=== PATIENT | male | born 1975 | race Caucasian/White ===

== ENCOUNTER 2023-02-06 15:27 | Outpatient (CLI) | payer OTHER, SELFPAY ==
--- NOTE | 2023-02-06 16:01 | ECHO_ITS ---
Patient Info Name: Caesar Laguerre Age: 47 years : 1975 Gender: Male Ht: 70 in Wt: 235 lbs BSA: 2.33 m2 HR: 73 bpm BP: 136 / 78 mmHg Heart Rhythm: Sinus Rhythm Technical Quality: Good Exam Date: 02/06/2023 4:10 PM Exam Location: [facility] Patient Status: Outpatient Admit Date: 02/06/2023 Staff Ordering Physician: Jeff Guzman MD Underwear Trimmer: Vikash Bermudez RDCS Attending Provider: Jeff Guzman MD Referring Physician: Thomas COURTNEY; Exam Type: CA echo doppler color flow Study Info Indications - cardiac murmur/umspcified Complete two-dimensional, color flow and Doppler transthoracic echocardiogram is performed. Summary 1. Complete two-dimensional, color flow and Doppler transthoracic echocardiogram is performed. 2. Normal left ventricular size and thickness with good contractility of all segments. Ejection fraction 60-65%. Normal diastolic function. 3. Trace mitral and tricuspid regurgitation'. 4. Probably normal estimated pulmonary pressure, although the tricuspid regurgitant envelope was not well defined. 5. Normal sinus rhythm. Left Ventricle Left ventricular chamber dimension is normal. Left ventricular systolic function is normal, estimated at 60-65%. There is no increased left ventricular wall thickness. Left ventricular septal wall motion is normal. The left ventricular diastolic function is normal. Right Ventricle Right ventricular chamber dimension is mildly enlarged. Right ventricular systolic function is normal. Left Atria Left atrial chamber dimension is normal. Right Atria Right atrial chamber dimension is normal. Aortic Valve The aortic valve is trileaflet. There is no aortic valve sclerosis. There is no aortic valve stenosis. There is no aortic valve regurgitation. Pulmonic Valve The pulmonic valve is normal. There is no pulmonic valve stenosis. There is no pulmonic regurgitation. Mitral Valve The mitral valve has normal leaflets. There is no mitral valve stenosis. There is trace mitral valve regurgitation. Tricuspid Valve The tricuspid valve leaflets are normal. There is no significant tricuspid valve stenosis. There is trace tricuspid valve regurgitation. No pulmonary hypertension, estimated pulmonary arterial systolic pressure is 16 mmHg. Pericardium/Pleural The pericardium appears normal. There is no pericardial effusion. Inferior Vena Cava Normal inferior vena cava with >50% collapse upon inspiration consistent with Empty right atrial pressure, 10 mmHg. Aorta The aortic root size at the sinus of Valsalva is normal. The prox ascending aorta size is normal. Left Ventricular Outflow Tract Name Value Normal LVOT 2D LVOT Diameter 2.2 cm LVOT Doppler LVOT Peak Gradient 4 mmHg LVOT Mean Gradient 2 mmHg LVOT VTI 21 cm LVOT VTI/AV VTI Ratio 0.8 LVOT Stroke Volume 82 ml LVOT CO 5.1 l/min LVOT CI 2.2 l/min/m2 Pulmonic Valve
== END 2023-02-06 15:28 | disposition home or self-care (01) ==
PROVIDERS: PCP Family Medicine; Visit Provider Family Medicine
DX: R01.1 Cardiac murmur, unspecified (principal)
CPT/HCPCS: 93306

== ENCOUNTER 2023-02-13 09:00 | Outpatient (NON) | payer OTHER, SELFPAY | END 2023-02-13 09:01 | disposition home or self-care (01) | LOC: ANHLAB 02-14 07:33 | PROVIDERS: PCP Family Medicine; Visit Provider Internal Medicine Gastroenterology | DX: Z12.11 Encounter for screening for malignant neoplasm of colon (principal); K63.5 Polyp of colon | CPT/HCPCS: 88305 ==

== ENCOUNTER 2023-02-13 11:07 | Day surgery (SDC) | payer OTHER, SELFPAY ==
[2023-01-10 11:24] VITALS: BMI 36.0
[2023-01-28 10:31] VITALS: BMI 33.8
--- NOTE | 2023-02-12 12:48 | P.PNAN_ITS ---
Anes - Initial Pre Proc Eval Procedure: Operation Date: 02/13/23 12:30 Proposed Procedures p Screening Colonoscopy - Alli Ryan MD Date/Time: 02/12/23 12:48 Surgeon: Alli Ryan MD Pre Op Diagnosis: Neoplasm Screening Patient Data Age: 47 Gender: M Height: 1.78 m Weight: 107 kg Allergies Allergy/AdvReac Type Severity Reaction Status Date / Time No Known Allergies Allergy Verified 02/13/23 11:31 Home Medications Medication Instructions Recorded Confirmed Type lisinopril 5 mg tablet 5 mg PO DAILY #90 tabs 01/06/23 02/13/23 Rx sodium,potassium,mag sulfates 17.5 See Rx Instructions PO .COMPLEX 01/10/23 02/13/23 Rx gram-3.13 gram-1.6 gram oral soln #354 mL (Suprep Bowel Prep Kit) Patient hx anesthesia problems: none Family hx anesthesia problems: none Results Review: All pre-operative results and documents have been reviewed as part of the pre- operative evaluation. [facility] Past Medical History Medical History (Updated 02/12/23 @ 12:49 by Gary Soliz DO) Essential (primary) hypertension Family History Family History Father Family history of glaucoma Other Family history of malignant neoplasm of breast Hypertension No family history of cardiovascular disease Social History Social History (Updated 12/19/22 @ 15:37 by Maya Vidal MA) Smoking status: Never smoker Alcohol intake: current Alcohol use details: 2x week Substance use: never Substance use type: does not use Lack of Transportation: No Lack of Food: Never True Current Housing: I Have Housing Concerned About Future Housing: No Difficulty Paying Gas/Electric Bills: No Difficulty Paying for Meds: No Currently Unemployed: No Living arrangements: with family Spiritual care concerns: No Anes - Eval Final PreProcedure Day of Procedure 02/12/23 12:48 Patient weight: obese Heart: regular rate and rhythm Lungs: clear to auscultation Airway: Mallampati scale class II Neurological: alert and oriented Last oral intake: >/= 8 hours ASA classification: III Emergent: no Anesthetic plan: proceed Anesthesia type and monitoring: general GIVS and standard monitoring Results Review: All pre-operative results and documents have been reviewed as part of the pre- operative evaluation. Informed Consent: The patient's anesthetic plan and its attendant risks and benefits were discussed with the patient/family/POA. Questions were solicited and answers provided to the satisfaction of the patient/family/POA.
[2023-02-13 11:27] VITALS: BP 136/91; PULSE 80; RESP 18; TEMP 37.3; O2SAT 98; BMI 33.7
--- NOTE | 2023-02-13 11:44 | P.HP_ITS ---
History of Present Illness History of Present Illness Consent: Risks, benefits, and alternatives have been discussed and questions answered. Patient agrees to proceed with procedure. Chief complaint: Neoplasm Screening Narrative: Caesar Laguerre is a 47 year old male Presents for screening colonoscopy. Patient's current weight appetite and bowel movements are normal. Patient denies abdominal pain. He has had no bleeding. Family history is significant this father and uncle both have had colon polyps. patient presents today for neoplasia screening exam. Review of Systems Review of Systems: Review of systems noncontributory. [facility] Past Medical History Medical History (Updated 02/12/23 @ 12:49 by Gary Soliz DO) Essential (primary) hypertension Family History Family History Father Family history of glaucoma Other Family history of malignant neoplasm of breast Hypertension No family history of cardiovascular disease Social History Social History (Updated 12/19/22 @ 15:37 by Maya Vidal MA) Smoking status: Never smoker Alcohol intake: current Alcohol use details: 2x week Substance use: never Substance use type: does not use Lack of Transportation: No Lack of Food: Never True Current Housing: I Have Housing Concerned About Future Housing: No Difficulty Paying Gas/Electric Bills: No Difficulty Paying for Meds: No Currently Unemployed: No Living arrangements: with family Spiritual care concerns: No Meds Home Medications and Allergies Home Medications Medication Instructions Recorded Confirmed Type lisinopril 5 mg tablet 5 mg PO DAILY #90 tabs 01/06/23 02/13/23 Rx sodium,potassium,mag sulfates 17.5 See Rx Instructions PO .COMPLEX 01/10/23 02/13/23 Rx gram-3.13 gram-1.6 gram oral soln #354 mL (Suprep Bowel Prep Kit) Allergies Allergy/AdvReac Type Severity Reaction Status Date / Time No Known Allergies Allergy Verified 02/13/23 11:31 Vital Signs Vital Signs - 24 hr 02/13/23 11:27 Temperature 99.2 F Pulse Rate 80 Respiratory Rate 18 Blood Pressure 136/91 H Pulse Oximetry 98 Oxygen Delivery Room Air Exam Narrative: Physical exam reveals patient to be alert. Vital signs stable. HEENT exam is unremarkable. Patient is anicteric. Lungs are clear to auscultation and percussion. Heart is without murmur or extra sounds. Abdomen bowel sounds are present soft nontender with no organomegaly. Digital external rectal exam normal. Assessment and Plan Assessment and plan (1) Colon cancer screening: Code(s): Z12.11 - Encounter for screening for malignant neoplasm of colon Status: Acute Assessment and Plan: Patient presents today for screening colonoscopy. his father and uncle have had colon polyps. Plan for surveillance exam now. Consider this at 5 year intervals in the future.
[2023-02-13] MEDS: LACTATED RINGERS 1,000 ML 150 ML IV CONT (11:46)
[2023-02-13 12:23] VITALS: BP 123/77; PULSE 85; RESP 18; O2SAT 95
[2023-02-13 12:33] VITALS: BP 134/88; PULSE 76; RESP 16; O2SAT 99
[2023-02-13 12:43] VITALS: BP 124/84; PULSE 80; RESP 18; O2SAT 97
--- NOTE | 2023-02-13 13:39 | WPDANESPN ---
Anes - Prog Note Post-Op Date/Time: 02/13/23 13:39 Cardiovascular status: normal Respiratory status: normal Airway patency: baseline Mental status: baseline Post-Op hydration status: normal Vital Signs: Last Vital Signs Temp 37.3 C 02/13/23 11:27 Pulse 80 02/13/23 12:43 Resp 18 02/13/23 12:43 BP 124/84 02/13/23 12:43 Pulse Ox 97 02/13/23 12:43 O2 Del Method Room Air 02/13/23 12:43 Pain Score (VAS): 0 I/O: Intake & Output 02/12/23 02/13/23 02/13/23 23:59 07:59 15:59 Intake Total 350 Balance 350 Post-procedural complaints: none Patient Feedback: Patient satisfied with anesthetic care. Other Findings: Patient vital signs back to baseline. Patient denies nausea and vomiting. Patient's pain under control. Patient OK for discharge.
== END 2023-02-13 13:00 | disposition home or self-care (01) ==
PROVIDERS: PCP Family Medicine; Visit Provider Internal Medicine Gastroenterology
PROC: 0DJD8ZZ Inspection of Lower Intestinal Tract, Via Natural or Artificial Opening Endoscopic (ICD-10-PCS; CPT 45378; principal; 2023-02-13 12:30)
DX: Z12.11 Encounter for screening for malignant neoplasm of colon (principal)
CPT/HCPCS: 45385

== ENCOUNTER 2024-05-01 15:19 | Emergency (ER) | payer OTHER, SELFPAY ==
[2024-05-01 15:29] VITALS: BP 152/88; PULSE 84; RESP 18; TEMP 36.8; O2SAT 100
--- NOTE | 2024-05-01 15:30 | ED.EYEPROB ---
HPI - Eye Problem General Chief complaint: Eye Problems Stated complaint: eye swelling Time Seen by Provider: 05/01/24 15:31 Source: patient Mode of arrival: ambulatory Limitations: no limitations History of Present Illness HPI Narrative: 48-year-old male presented for complaint of right upper eyelid swelling, itching, and redness. Onset yesterday. He states the night before symptom onset he was outside doing yard work. Denies eye pain, FB sensation, vision changes, photophobia, or eye drainage. Has not taken anything for symptoms. Denies any other complaints MD chief complaint: eye pain Related Data Allergies Allergy/AdvReac Type Severity Reaction Status Date / Time No Known Allergies Allergy Verified 05/01/24 15:32 Review of Systems Review of Systems: CONSTITUTIONAL: Denies body aches, fever, chills EYES:Endorses swelling, redness and itching around right eye; Denies visual changes, FB sensation, photophobia ENT: Denies rhinorrhea, congestion, sore throat, or otalgia. CARDIOVASCULAR: Denies chest pain, palpitations RESPIRATORY: Denies cough or dyspnea. SKIN: Denies rash, itching, or wounds. MUSCULOSKELETAL: Denies back pain, joint pain, or myalgia. NEUROLOGIC: Denies headache, numbness, tingling, or weakness to face All systems reviewed & are unremarkable except as noted in HPI and below PMFSH Past Medical History Medical History Essential (primary) hypertension Labral tear of shoulder, degenerative Lateral epicondylitis of right elbow Olecranon impingement syndrome Prostatism Family History Family History Father Family history of glaucoma Other Family history of malignant neoplasm of breast Hypertension No family history of cardiovascular disease Social History Social History Smoking status: Never smoker Alcohol intake: current Alcohol use details: 2x week Substance use: never Substance use type: does not use Lack of Transportation: No Lack of Food: Never True Current Housing: I Have Housing Concerned About Future Housing: No Difficulty Paying Gas/Electric Bills: No Difficulty Paying for Meds: No Currently Unemployed: No Education: Associate Degree Difficulty w/ Childcare or Family Care: No Living arrangements: with family Spiritual care concerns: No Comments At time of signature, I have reviewed and agree with nursing past medical, surgical, social and family history unless otherwise noted. Please see nursing chart for further information. There is no relevant family history pertinent to the presenting complaint Exam Narrative: GENERAL: Well-appearing HEAD: Normocephalic, atraumatic. EYES: periorbital and upper eye lid swelling/redness to Right eye most c/w dermatitis. No occlusion. No conjunctival injection or drainage. PERRLA, EOMI. Lid eversion shows no FB ENT: Mucous membranes pink and moist. No rhinorrhea. TMs normal bilaterally. Throat normal. Uvula midline. CHEST: Clear to auscultation. HEART: Regular rate and rhythm. SKIN: Warm, dry, no rash. Normal skin turgor. NEURO: No focal deficits. Alert and oriented x3 PSYCH: Normal affect. Course Course Emergency Course: Patient is aware of diagnosis, understands and agrees to treatment plan. Anticipatory guidance given. Patient agrees to follow-up as directed and is aware of reasons to seek care at the emergency department. Portions of this record may have been created with voice recognition software Level of Care: Express Care Visit Vital Signs Vital signs: Vital Signs Temperature 98.3 F 05/01/24 15:29 Pulse Rate 84 05/01/24 15:29 Respiratory Rate 18 05/01/24 15:29 Blood Pressure 152/88 H 05/01/24 15:29 Pulse Oximetry 100 05/01/24 15:29 Oxygen Delivery Room Air 05/01/24 15:29 Temp
== END 2024-05-01 15:50 | disposition home or self-care (01) ==
PROVIDERS: Emergency Provider Nurse Practitioner Family; PCP Family Medicine
DX: H02.841 Edema of right upper eyelid (principal); I10 Essential (primary) hypertension
CPT/HCPCS: 99213; G0463